=== PATIENT | male | born 1960 | race Caucasian/White ===

== ENCOUNTER 2018-12-23 07:04 | Day surgery (SDC) | payer OTHER ==
[~2018-12-23] VITALS: Ht 182.9 cm; Wt 87.6 kg
[2018-12-23 08:09] VITALS: BP 141/83; PULSE 121; RESP 18
[2018-12-23] MEDS ORDERED: IBUPROFEN (08:24)
[2018-12-23] MEDS ORDERED: ANTIVIRALS (08:24)
[2018-12-23] MEDS ORDERED: LOSARTAN (08:24)
== END 2018-12-23 08:46 | disposition home or self-care (01) ==
LOC: GIL 07:04
PROVIDERS: ATTEND Internal Medicine Gastroenterology
DX: Z12.11 Encounter for screening for malignant neoplasm of colon (principal); Z53.8 Procedure and treatment not carried out for other reasons